=== PATIENT | female | born 1985 | race African-American/Black ===

== ENCOUNTER 2021-12-31 02:05 | Emergency (ER) | payer SELFPAY ==
[~2021-12-31] VITALS: Ht 167.6 cm; Wt 81.8 kg
[2021-12-31 02:07] VITALS: TEMP 98.9
[2021-12-31 02:34] LABS: HEMATOCRIT 41.1 % (37.0-47.0); HEMOGLOBIN 14.2 g/dl (12.5-16.0); MEAN CELL VOLUME 86 fl (80.0-100.0); MEAN CORPUSCULAR HEMOGLOBIN 30 pg (27-31); MEAN CORPUSCULAR HGB CONC 35 g/dl (33.0-37.0); MEAN PLATELET VOLUME 11.1 fl (7.4-10.4); PLATELET COUNT 245 K/mm3 (130-400); RED BLOOD COUNT 4.77 M/mm3 (4.10-5.30); REDCELL DISTRIBUTION WIDTH-CV 12.4 % (11.5-14.5)
[2021-12-31 02:50] LABS: ALBUMIN 4.4 gm/dL (3.5-5.0); BILIRUBIN,TOTAL 0.2 mg/dL (0.2-1.2); CALCIUM 8.6 mg/dL (8.4-10.2); CREATININE, serum 0.88 mg/dL (0.57-1.11); POTASSIUM 3.3 mmol/L (3.5-4.5); TOTAL PROTEIN 7.9 gm/dL (6.2-8.1)
[2021-12-31 02:54] LABS: LYMPHOCYTE 68 % (20.0-51.0); NEUTROPHILS 27 % (42.0-75.2); PLATELET ESTIMATE NORMAL (NORMAL)
[2021-12-31 12:54] VITALS: BP 96/69; PULSE 53
--- NOTE | 2021-12-31 14:49 | NUR ---
SW met with patient after receiving consult from patients RN that the patients sister Britney Stewart called stating that she has been taking care of the patients daughter and that the patient has been drinking. Patient was not willing to speak with SW, but eventually agreed. SW met with patient at bedside. Patient is a and her is currently [place]. She lives at home with her teenage daughter. [facility] [place] [facility] is unsure of what color team she is on. Patient reports that they manage her medications for PTSD and major depression. She admits to drinking Vodka as a way to escape the depression. Patient also reports to having seizures "that i know is not just from alcohol". She does admit to report to having her sister Britney Stewart, her friend Candelaria Otero and her mother in law who lives in [place] as supports. SW informed her that her sister had called with concerns. Patient put her sister on the phone who states that her only concern is having to drop the patients daughter off this morning and [place] but verbalized no other concerns.
== END 2021-12-31 13:33 | disposition home or self-care (01) ==
LOC: COL.ER 02:05
PROVIDERS: Emergency Medicine
DX: R56.9 Unspecified convulsions (principal); R45.1 Restlessness and agitation; F10.90 Alcohol use, unspecified, uncomplicated; R00.0 Tachycardia, unspecified
CPT/HCPCS: J2060

== ENCOUNTER 2022-12-30 10:20 | Day surgery (SDC) | payer OTHER ==
[~2022-12-30] VITALS: Ht 165.1 cm; Wt 77.4 kg
[2022-12-30 11:25] VITALS: BP 116/79; PULSE 58; TEMP 98.4
[2022-12-30] MEDS ORDERED: LOPROX CR 15GM TOP (11:28)
[2022-12-30] MEDS ORDERED: AIMOVIG AU70 MG/1 M1 SQ (11:29)
[2022-12-30] MEDS ORDERED: PRILOSEC 20MG20 MG PO (11:30)
[2022-12-30] MEDS ORDERED: MAG-OX 400400 MG/TAB PO (11:30)
[2022-12-30] MEDS ORDERED: INDERAL 10MG10 MG (11:31)
[2022-12-30] MEDS ORDERED: SEROQUEL400 MG PO (11:32)
[2022-12-30] MEDS ORDERED: DESYREL 100MG100 MG PO (11:33)
[2022-12-30] MEDS ORDERED: TOPAMAX 100MG100 M1 PO (11:33)
[2022-12-30] MEDS ORDERED: ZOLOFT 50MG50 MG PO (11:35)
[2022-12-30] MEDS ORDERED: RELPAX20 MG PO (11:35)
--- NOTE | 2022-12-30 13:08 | NUR ---
PATIENT AMBULATED TO BAY 1 WITH STEADY GAIT. ALERT AND ORIENTED X4. PATIENT STATED UNDERSTANDING OF PROCEDURE. CONSENTS SIGNED. ASSESSMENT COMPLETED. 20G IV STARTED IN LEFT HAND. LR INFUSING WITHOUT DIFFICULTIES. WARM BLANKET PROVIDED. NO FURTHER NEEDS NOTED. RESTING IN RECLINER. AT BEDSIDE.
[2022-12-30 13:15] VITALS: BP 135/71; PULSE 49; TEMP 98.4
--- NOTE | 2022-12-30 13:15 | NUR ---
1315 PATIENT RETURNS TO ROOM 1 VIA CART. PATIENT IS DROWSY, BUT ALERTS TO VERBAL STIMULI. PATIENT AMBULATES TO RECLINER WITH THE ASSISTANCE OF 2 NURSES. RESPIRATIONS EVEN AND UNLABORED, ON ROOM AIR. VITAL SIGNS OBTAINED. PATIENT IN ROOM. PATIENT STATES THAT HER IV IS BOTHERING HER AND REQUESTED IT TO BE TAKEN OUT. THIS NURSE DISCONTINUED IV FROM RIGHT HAND WITH NO DIFFICULTIES. IV CATHETER INTACT. PATIENT STATES THAT SHE DOES NOT WANT ANYTHING TO EAT OR DRINK AT THIS TIME. 1330 DOCTOR IN ROOM TO SPEAK WITH PATIENT. 1335 THIS NURSE REVIEWED DISCHARGE INSTRUCTIONS WITH PATIENT AND PATIENT . BOTH VERBALIZED UNDERSTANDING. 1345 PATIENT DISCHARGED FROM UNIT VIA WHEELCHAIR IN STABLE CONDITION.
== END 2022-12-30 13:15 | disposition home or self-care (01) ==
LOC: SDCO 10:20
DX: K21.00 Gastro-esophageal reflux disease with esophagitis, without bleeding (principal); K62.1 Rectal polyp; K92.1 Melena; K64.1 Second degree hemorrhoids; G47.33 Obstructive sleep apnea (adult) (pediatric); F17.210 Nicotine dependence, cigarettes, uncomplicated; F17.220 Nicotine dependence, chewing tobacco, uncomplicated
CPT/HCPCS: J2704; J7120